=== PATIENT | female | born 1985 | race African-American/Black ===

== ENCOUNTER 2019-03-18 09:42 | Emergency (ER) | payer BC ==
[2019-03-18] MEDS ORDERED: Hydrochlorothiazide TAB* 50 MG PO ONE (10:22)
--- NOTE | 2019-03-18 10:37 | ED ---
Headache - HPI Summary HPI Summary: Patient is a 33 y/o F presenting to [facility] with complaints of HAs, dizziness, and blurred vision. HAs have been present daily for the past week while dizziness and blurred vision onset yesterday. She states that her HAs are located at the front and sides of her head and she characterizes her HAs as migraines. When asked if she has Hx of migraines, she responds "kind of sort of ". Patient notes that she has Hx of HAs associated with elevated blood pressure. Dizziness is characterized as a room-spinning/off-balance sensation. Patient notes that she has experienced dizziness with her HAs previously, but not blurred vision. She also notes that she has been having some slight difficulty with memory and that her hands have been "falling asleep" more frequently. PMHx of HTN noted; patient is prescribed hydrochlorothiazide, 50 mg , but has not taken this medication for the past 3-4 weeks as her prescription ran out. Patient has not taken any medications for her Sx. PSHx of cholecystectomy and ovary removal reported. Allergy to Reglan noted. Patient is a current smoker but denies alcohol and substance usage. Home medications and allergies are reviewed. - History Of Current Complaint Chief Complaint: EDHypertension Stated Complaint: HEADACHES/BLURRED VISION/HIGH BP PER PT Time Seen by Provider: 03/18/19 10:00 Hx Obtained From: Patient Onset/Duration: Started days ago - dizziness, blurred vision, Started weeks ago - FABIAN, Still Present Timing: Days, Weeks Character: Migraine Location of Headache: Frontal, Other: - sides of head Associated Signs And Symptoms: Dizziness, Visual Changes, Other (Noted In Comments) - positive - slight difficulty with memory and hand falling asleep - Allergies/Home Medications Allergies/Adverse Reactions: Allergies Allergy/AdvReac Type Severity Reaction Status Date / Time metoclopramide [From Reglan] Allergy Altered Verified 03/18/19 09:45 Mental Status PMH/Surg Hx/FS Hx/Imm Hx Cardiovascular History: Reports: Hx Hypertension Neurological History: Reports: Hx Headaches, Hx Migraine - reported - Surgical History Surgery Procedure, Year, and Place: ovary removal. cholecystectomy Infectious Disease History: No Infectious Disease History: Denies: Traveled Outside the [place] in Last 30 Days - Family History Known Family History: Negative: Blood Disorder - Social History Alcohol Use: None Substance Use Type: Reports: None Smoking Status (MU): Light Every Day Tobacco Smoker Review of Systems Positive: Blurred Vision Neurological: Other - positive - dizziness, slight difficulty with memory, hands "falling asleep" Positive: Headache All Other Systems Reviewed And Are Negative: Yes Physical Exam - Summary Physical Exam Summary: Constitutional: Well-developed, Well-nourished, Alert. (-) Distressed Skin: Warm, Dry HENT: Normocephalic; Atraumatic Eyes: Conjunctiva normal Neck: Musculoskeletal ROM normal neck. (-) JVD, (-) Stridor, (-) Tracheal deviation Cardio: Rhythm regular, rate normal, Heart sounds normal; Intact distal pulses; Radial pulses are 2+ and symmetric. (-) Murmur Pulmonary/Chest wall: Effort normal. (-) Respiratory distress, (-) Wheezes, (-) Rales Abd: Soft, (-) tenderness, (-) Distension, (-) Guarding, (-) Rebound Musculoskeletal: (-) Edema Lymph: (-) Cervical adenopathy Neuro: Alert, Oriented x3, GCS 15, NIH 0 Psych: Mood and affect Normal Triage Information Reviewed: Yes Vital Signs On Initial Exam: Initial Vitals Temp Pulse Resp BP Pulse Ox 97.8 F 75 17 163/125 97 03/18/19 09:43 03/18/19 09:43 03/18/19 09:43 03/18/19 09:43 03/18/19 09:43 Vital Signs Reviewed: Yes - Seamus Coma Scale Best Eye Response: 4 - Spontaneous Best Motor Response: 6 - Obeys Commands Best Verbal Response: 5 - Oriented Coma Scale Total: 15 Procedures - Sedation Patient Received Moderate/Deep Sedation with Procedure: No Diagnostics - Vital Signs Vital Signs Temp Pulse Resp BP Pulse Ox 03/18/19 09:43 97.8 F 75 17 163/125 97 - Laboratory Result Diagrams: 03/18/19 10:27 03/18/19 10:27 Lab Statement: Any lab studies that have been ordered have been reviewed, and results considered in the medical decision making process. - EKG 1040 Cardiac Rate: NL - rate of 86 BPM EKG Rhythm: Sinus Rhythm Summary of EKG Findings: EKG showed NSR with rate of 86 BPM, no ischemic changes , no STEMI. ED physician has reviewed and interpred this EKG. National Institutes Of Health - NIH Scale Level of Consciousness: Alert/Keenly Responsive Ask Patient the Month and His/Her Age: Both Correct Ask Pt to Open/Close Eyes and Senior Java Data Architect/Release Non-Paretic Hand: Both Correctly Best Gaze (Only Horizontal Eye Movement): Normal Visual Field Testing: No Visual Loss Facial Paresis-Pt to Smile & Close Eyes or Grimace Symmetry: Normal/Symmetrical Motor Function - Right Arm: No Drift-Holds 10 Seconds Motor Function - Left Arm: No Drift-Holds 10 Seconds Motor Function - Right Leg: No Drift-Holds 10 Seconds Motor Function - Left Leg: No Drift-Holds 10 Seconds Limb Ataxia-Must be out of Proportion to Weakness Present: Absent Sensory (Use Pinprick to Test Arms/Legs/Trunk/Face): Normal Best Language (Describe Picture, Name Items): No Aphasia Dysarthria (Read Several Words): Normal Extinction and Inattention: No Abnormality Total Score: 0 Re-Evaluation - Re-Evaluation First Eval Re-Evaluation Time: 11:03 Comment: FABIAN present, patient agreeable with Tylenol. Second Eval Re-Evaluation Time: 11:56 Comment: Patient is still with headache. She declines IV medication but is agreeable with PO Benadryl. Third Eval Re-Evaluation Time: 12:34 Comment: Patient now agreeable with IV medications. Fourth Eval Re-Evaluation Time: 12:39 Comment: Nurse went to place IV. However, the patient states that she changed her mind about it and does not want it anymore. Fifth Eval Re-Evaluation Time: 13:16 Comment: Patient was offered IV medications once more, which was declined once more. She is agreeable with discharge. Headache Course/Dx - Course Course Of Treatment: Patient is here with uncontrolled hypertension and headache. Patient has been off her hydrochlorothiazide for the past 3 weeks. Patient states in the past, she had the exact same symptoms she has today when her blood pressure was high. Patient had blood performed showed no evidence of kidney damage. Patient had an EKG which showed no abnormality. Patient does not like taking the medicine. Patient is given her hydrocortisone positive here , Motrin, Tylenol. Patient was offered multiple times for IV medication for her headache. Patient declined due to her fear medicines. Patient is neuro intact with no evidence of stroke on exam. Patient does not need imaging at this time. Patient was discharged a prescription fraud chlorothiazide and a referral for primary care doctor - Diagnoses Provider Diagnoses: Headache, HTN (hypertension) Discharge ED - Sign-Out/Discharge Documenting (check all that apply): Patient Departure - discharge - Discharge Plan Condition: Stable Disposition: HOME Prescriptions: Butalb/Acetamin/Caff TAB* [Fioricet TAB*] 1 tab PO Q6H PRN #20 tab MDD 4 tablets PRN Reason: Headache Hydrochlorothiazide TAB* [Hydrodiuril TAB*] 50 mg PO DAILY 30 Days #30 tab Medical Supply, Miscellaneous [Blood Pressure Cuff] 1 each QAM #1 each Patient Education Materials: Acute Headache (ED), Hypertension (ED) Referrals: [facility] [Outside] - 3 Days Additional Instructions: FOLLOW UP WITH YOUR PRIMARY CARE PHYSICIAN WITHIN THREE DAYS. PLEASE TAKE YOUR MEDICATIONS PRESCRIBED. PLEASE RETURN TO ED FOR ONE-SIDED WEAKNESS OR NUMBNESS, SLURRED SPEECH, OR ANY OTHER CONCERNING SYMPTOMS. - Billing Disposition and Condition Condition: STABLE Disposition: Home - Attestation Statements Document Initiated by Noreene: Yes Documenting Scribe: LEE ANN CRUZ Provider For Whom Cristal is Documenting (Include Credential): LANI REYES MD Scribe Attestation: ILEE ANN, scribed for LANI REYES MD on 03/18/19 at 1457. Scribe Documentation Reviewed: Yes Provider Attestation: The documentation as recorded by the scribLEE ANN gaines accurately reflects the service I personally performed and the decisions made by me, LANI REYES MD Status of Scribe Document: Viewed
[2019-03-18 10:49] LABS: Hematocrit 41 % (35-47); Hemoglobin 14.3 g/dL (12.0-16.0); Mean Corpuscular HGB Conc 35 g/dL (31-36); Mean Corpuscular Hemoglobin 34 pg (27-31); Mean Corpuscular Volume 98 fL (80-97); Red Blood Count 4.19 10^6 /uL (3.70-4.87); Red Cell Distribution Width 12 % (10-15); White Blood Count 5.8 10^3/uL (3.5-10.8)
[2019-03-18 11:02] LABS: BUN/Creatinine Ratio 10.8 (8-20); Calcium 9.7 mg/dL (8.6-10.3); EGFR African American 95.2 (>60); EGFR Non-African American 78.7 (>60); Potassium 3.9 mmol/L (3.5-5.0)
[2019-03-18] MEDS: Hydrochlorothiazide TAB* 25 MG PO ONE (11:02)
[2019-03-18] MEDS: Acetaminophen TAB* 325 MG PO ONE (11:12)
[2019-03-18] MEDS: Ibuprofen TAB* 600 MG PO ONE (11:23)
[2019-03-18 11:49] LABS: Mean Platelet Volume 9.7 fL (7.4-10.4); Platelet Count 245 10^3/uL (150-450)
[2019-03-18 11:53] LABS: ABS Eosinophils 0.1 10^3/ul (0-0.6)
[2019-03-18] MEDS ORDERED: PROCHLORPERAZINE INJ 5 MG/ML 2 ML VIAL IV ONE (12:34)
[2019-03-18] MEDS ORDERED: NS 0.9% 1000 ML** 1,000 ML IV ONE (12:34)
[2019-03-18] MEDS: diPHENhydraMINE PO* 50 MG PO ONE (12:37)
[2019-03-18 14:08] VITALS: BP 155/120
== END 2019-03-18 13:50 | disposition home or self-care (01) ==
LOC: ED 09:42
DX: I10 Essential (primary) hypertension (principal); F17.200 Nicotine dependence, unspecified, uncomplicated; Z90.49 Acquired absence of other specified parts of digestive tract; Z79.899 Other long term (current) drug therapy; Z88.8 Allergy status to other drugs, medicaments and biological substances
CPT/HCPCS: 36415; 80048; 85025; 93005; 99284; A9270-GY

== ENCOUNTER 2019-03-31 23:36 | Emergency (ER) | payer BC ==
--- NOTE | 2019-04-01 00:06 | ED ---
Throat Pain/Nasal Congestion - HPI Summary HPI Summary: 33 year presents with sudden onset feel like her throat was closing. States she was smoking when it occurred. she admitted to some shortness of breath. She states that this lasted hour and when she arrived it has resolved. She states this happened before and followed up with primary and they ordered a thyroid ultrasound which she is suppose to have tomorrow. She denies any pain. No chest pain. No abdominal pain. No nausea vomiting. She did not eat anything different. She states the smoke 2 cigarettes before. - History of Current Complaint Chief Complaint: EDThroatPain Time Seen by Provider: 03/31/19 23:50 - Allergies/Home Medications Allergies/Adverse Reactions: Allergies Allergy/AdvReac Type Severity Reaction Status Date / Time metoclopramide [From Reglan] Allergy Altered Verified 03/18/19 09:45 Mental Status PMH/Surg Hx/FS Hx/Imm Hx Endocrine/Hematology History: Denies: Hx Anticoagulant Therapy Cardiovascular History: Reports: Hx Hypertension Neurological History: Reports: Hx Headaches, Hx Migraine - reported - Surgical History Surgery Procedure, Year, and Place: ovary removal. cholecystectomy Infectious Disease History: No Infectious Disease History: Denies: Traveled Outside the [place] in Last 30 Days - Family History Known Family History: Negative: Blood Disorder - Social History Alcohol Use: None Substance Use Type: Reports: None Smoking Status (MU): Light Every Day Tobacco Smoker Review of Systems Negative: Fever Positive: Sore Throat Negative: Chest Pain Positive: Shortness Of Breath All Other Systems Reviewed And Are Negative: Yes Physical Exam Triage Information Reviewed: Yes Vital Signs On Initial Exam: Initial Vitals Temp Pulse Resp BP Pulse Ox 97.4 F 88 20 164/110 99 03/31/19 23:38 03/31/19 23:38 03/31/19 23:38 03/31/19 23:38 03/31/19 23:38 Vital Signs Reviewed: Yes Appearance: Positive: Well-Appearing Skin: Positive: Warm, Dry Head/Face: Positive: Normal Head/Face Inspection Eyes: Positive: Normal, EOMI, SORAYA, Conjunctiva Clear ENT: Positive: Pharynx normal, TMs normal Neck: Positive: Supple, Nontender, No Lymphadenopathy Respiratory/Lung Sounds: Positive: Clear to Auscultation, Breath Sounds Present Cardiovascular: Positive: Normal, RRR Abdomen Description: Positive: Nontender, Soft Bowel Sounds: Positive: Present Musculoskeletal: Positive: Normal Neurological: Positive: Normal Psychiatric: Positive: Normal Procedures - Sedation Patient Received Moderate/Deep Sedation with Procedure: No Diagnostics - Vital Signs Vital Signs Temp Pulse Resp BP Pulse Ox 03/31/19 23:38 97.4 F 88 20 164/110 99 - Laboratory Lab Statement: Any lab studies that have been ordered have been reviewed, and results considered in the medical decision making process. EENT Course/Dx - Course Course Of Treatment: 33 year presents with sudden onset feel like her throat was closing. States she was smoking when it occurred. she admitted to some shortness of breath. She states that this lasted hour and when she arrived it has resolved. She states this happened before and followed up with primary and they ordered a thyroid ultrasound which she is suppose to have tomorrow. She denies any pain. No chest pain. No abdominal pain. No nausea vomiting. She did not eat anything different. She states the smoke 2 cigarettes before. On exam pharynx normal. Lungs CTA. no abnormality seen on exam. told if occurs again to try some Benadryl. told follow up with primary. Patient understands agrees plan. - Differential Diagnoses Differential Diagnoses: Pharyngitis, Tonsilitis, Other - allergic reaction - Diagnoses Provider Diagnoses: Throat tightness Discharge ED - Sign-Out/Discharge Documenting (check all that apply): Patient Departure - Discharge Plan Condition: Good Disposition: HOME Referrals: No Primary Care Phys,NOPCP [Primary Care Provider] - Additional Instructions: you had a normal physical exam follow up with primary within 5 days take Benadryl if symptoms to reoccur Return to ED if develop any new or worsening symptoms - Billing Disposition and Condition Condition: GOOD Disposition: Home
[2019-04-01 00:13] VITALS: BP 139/93
== END 2019-04-01 00:12 | disposition home or self-care (01) ==
LOC: ED 23:36
DX: R07.0 Pain in throat (principal); R06.02 Shortness of breath; I10 Essential (primary) hypertension; Z88.8 Allergy status to other drugs, medicaments and biological substances; F17.200 Nicotine dependence, unspecified, uncomplicated
CPT/HCPCS: 99281